=== PATIENT | male | born 1980 | race Caucasian/White ===

== ENCOUNTER 2022-09-25 06:22 | Emergency (ER) | payer MEDICAID, SELFPAY ==
[2022-09-25 06:23] VITALS: PULSE 109; RESP 24; TEMP 36.8; O2SAT 90; BMI 34.4
[2022-09-25 06:31] VITALS: BP 175/100
[2022-09-25] MEDS: Albuterol 2.5 MG/3 ML VIAL.NEB. INHALATION (06:49)
[2022-09-25] MEDS: Ipratropium/Albuterol Sulfate 3 ML AMPUL.NEB INHALATION (06:49)
[2022-09-25 06:50] VITALS: PULSE 92; RESP 22
[2022-09-25 06:51] VITALS: O2SAT 94
[2022-09-25] MEDS: MethylPREDNISolone 125 MG/2 ML Vial IV (07:01)
--- NOTE | 2022-09-25 07:15 | RAD_ITS ---
INDICATION: cough EXAMINATION/TECHNIQUE: X-RAY - XR Chest 2 Views COMPARISON: Chest x-ray from 03/08/2013 FINDINGS: LINES/DEVICES: None. LUNGS: No pulmonary edema or focal airspace consolidation. No sizable pleural effusion. No pneumothorax detected. MEDIASTINUM AND CARDIOVASCULAR STRUCTURES: Heart size within normal limits. Mediastinal contours unremarkable. BONES AND SOFT TISSUES: No acute findings. RAD/Chest PA and Lateral IMPRESSION: No radiographic evidence of acute cardiopulmonary disease. Electronically Signed: Pasquale Alexandra MD at 7:36 EST ,
--- NOTE | 2022-09-25 07:18 | EX.ED.DYSGE1 ---
HPI History of Present Illness Chief Complaint: Shortness of Breath Narrative Narrative: Patient is a 42-year-old male with past medical history of hypertension and smoking. He states he came in from chopping wood last night and felt mildly short of breath. He states his night progressed to shortness of breath worsened. He denies any known sick contacts and he denies any fevers or chills. He denies any chest pain associated with this. He states that as his shortness of breath seems to be worsening he was concerned about infectious process and therefore comes in for evaluation [facility] Home Medications albuterol sulfate 90 mcg/actuation aerosol inhaler (Ventolin HFA) 1 - 2 puff inhalation Q4H PRN PRN Wheezing #1 device 09/25/22 [Rx Last Taken Unknown] fluticasone furoate 100 mcg-vilanterol 25 mcg/dose inhalation powder (Breo Ellipta) 1 inh inhalation DAILY #60 ea 09/25/22 [Rx Last Taken Unknown] prednisone 20 mg tablet 40 mg PO DAILY 5 days #10 tabs 09/25/22 [Rx Last Taken Unknown] Allergy/AdvReac Type Severity Reaction Status Date / Time No Known Allergies Allergy Verified 10/20/15 19:49 Surgical History (Updated 09/25/22 @ 06:27 by Soco Mooney) H/O left knee surgery Social History Smoking Status: Current every day smoker tobacco type: cigarettes ROS ROS ED Constitutional Constitutional ED: Denies chills or fever(s) ENT ENT ED: Reports rhinorrhea; Denies sore throat Cardiovascular Cardiovascular: Denies chest pain, palpitations or racing heartbeat Respiratory/Chest Respiratory/Chest: Reports cough and dyspnea Gastrointestinal Gastrointestinal: Denies abdominal pain, diarrhea, nausea or vomiting Genitourinary Genitourinary ED: Denies dysuria Musculoskeletal Musculoskeletal: Denies myalgias Integumentary Denies rash Neurologic Neurologic: Denies headache(s) Hematologic/Lymphatic Hematologic/Lymphatic: Denies easy bleeding or easy bruising EXAM Physical Exam Const Vital Signs: 09/25/22 06:23 09/25/22 06:31 09/25/22 06:50 Temperature 98.3 F Temperature Source Oral Pulse Rate 109 H 92 Respiratory Rate 24 H 22 H Respiratory Effort Respiratory Depth Respiratory Pattern Blood Pressure 175/100 H Blood Pressure Mean 125 Pulse Ox 90 Oxygen Delivery Method Room Air 09/25/22 06:51 Temperature Temperature Source Pulse Rate Respiratory Rate Respiratory Effort Short of Breath Accessory Muscle Use Respiratory Depth Shallow Respiratory Pattern Tachypnea Blood Pressure Blood Pressure Mean Pulse Ox Oxygen Delivery Method Room Air Positive well nourished and well developed General Appearance ED: well developed HEENT Reports moist mucous membranes HEENT Narrative: Cobblestoning the posterior pharynx consistent with sinus drainage without airway edema or compromise Eyes PERRL and EOMs intact bilaterally Neck supple and no JVD Neck Narrative: Positive anterior cervical lymphadenopathy noted Resp Resp Narrative: Patient is tachypneic with diminished breath sounds throughout with diffuse inspiratory and expiratory wheezing Cardio regular rhythm Rate: tachycardic Extremity normal to inspection Extremity Narrative: No asymmetric edema no pitting edema negative Homans' sign bilaterally Neuro oriented x3 and CN's II-XII intact bilaterally Sensorium / Orientation: alert Psych mental status grossly normal Skin no rashes or lesions noted MDM MDM MDM Narrative Medical decision making narrative: Patient presented to the ER tachypneic and satting in the low 90s on room air. He had diminished breath sounds with wheeze consistent with COPD exacerbation. In order to check for possible lung pathology a chest x-ray was obtained and viral swabs were ordered as well. Influenza and COVID tests are negative and chest x-ray reveals no acute infiltrate pneumothorax or pleural effusion. Patient was given albuterol DuoNeb and steroids and on reevaluation had improvement of symptoms and his breath sounds and work of breathing improved as well. At this time as symptoms are most consistent with a COPD exacerbation and not cardiac or infectious I do not feel there is need for further work-up. Patient be given symptomatic medications and is otherwise safe for discharge as symptoms have improved with treatment and he is not requiring any type of supplemental oxygen. Radiography Diagnostic Testing: Clinical Impression(s) from Imaging Studies Chest X-Ray 09/25/22 07:15 IMPRESSION: No radiographic evidence of acute cardiopulmonary disease. Electronically Signed: Pasquale Alexandra MD at 7:36 EST , Chest x-ray as interpreted by emergency medicine physician reveals no acute infiltrate pneumothorax pleural effusion Discharge Plan Triage Chief Complaint: Shortness of Breath ED Provider: David Buckner Dx/Rx/DC Orders Clinical Impression: Acute exacerbation of chronic obstructive pulmonary disease, Hypertension, Tobacco abuse Instructions: COPD: Wheezing and Chest Tightness Prescriptions: New prednisone 20 mg tablet 40 mg PO DAILY 5 Days Qty: 10 0RF albuterol sulfate [Ventolin HFA] 90 mcg/actuation HFA aerosol inhaler 1 - 2 puff inhalation Q4H PRN PRN (Reason: Wheezing) Qty: 1 2RF fluticasone furoate-vilanterol [Breo Ellipta] 100-25 mcg/dose blister with device 1 inh inhalation DAILY Qty: 60 2RF Stand Alone Forms: ED Work / School Excuse Primary Care Provider: Care Physician,No Primary Referrals: Travon Rodríguez MD [Med Staff - Active Staff] - Care Physician,No Primary [Primary Care Provider] - Activity Restrictions/Additional Instructions: Please take the steroids for the next 5 days to control inflammation and use your rescue inhaler as needed. Please also take the maintenance inhaler daily to prevent further flares and return to the ER should you have any further concerns Disposition Disposition: Home, Self Care
[2022-09-25 07:59] VITALS: BP 160/99; PULSE 76; RESP 20; O2SAT 97
[2022-09-25] MEDS: Albuterol Sulfate 8 gm Inhaler (60 puffs) 2 PUFF INHALATION (07:59)
== END 2022-09-25 08:00 | disposition home or self-care (01) ==
PROVIDERS: Emergency Provider Emergency Medicine; Visit Provider Emergency Medicine
DX: J44.1 Chronic obstructive pulmonary disease with (acute) exacerbation (principal); R06.82 Tachypnea, not elsewhere classified; Z20.822 Contact with and (suspected) exposure to COVID-19; I10 Essential (primary) hypertension; F17.210 Nicotine dependence, cigarettes, uncomplicated
CPT/HCPCS: 71046; 87428; 94640; 99283; A4216

== ENCOUNTER 2023-01-25 15:46 | Emergency (ER) | payer MEDICAID, SELFPAY ==
[2023-01-25 15:47] VITALS: BP 173/89; PULSE 112; RESP 18; TEMP 36.4; O2SAT 99; BMI 35.6
--- NOTE | 2023-01-25 15:57 | EDS_ITS ---
HPI <JAZMYN Perez - Last Filed: 01/25/23 16:05> History of Present Illness Chief Complaint: Allergic Reaction Narrative Narrative: 42-year-old male was cleaning someone's dog kennel with lots of alexus in it 2 days ago. That night he noticed red lesions on both arms and the right side of his chest where the arm touches his rib cage. He also had a few spots around the right eye that became significantly more swollen today. He took some allergy medicine and the swelling went down a little bit. He has no difficulty swallowing or breathing. PFSH <JAZMYN Perez - Last Filed: 01/25/23 16:05> PFS Home Medications prednisone 10 mg tablet 10 mg PO DAILY #34 TABLETS 01/25/23 [Rx Last Taken Unknown] Allergy/AdvReac Type Severity Reaction Status Date / Time No Known Allergies Allergy Verified 01/25/23 15:49 Surgical History H/O left knee surgery Social History Smoking Status: Current every day smoker tobacco type: cigarettes ROS <JAZMYN Perez - Last Filed: 01/25/23 16:05> ROS ED ROS Narrative Constitutional: Negative for fever, chills, malaise. CVS: Negative for chest pain. Respiratory: Negative for shortness of breath. Skin: Positive for rash. EXAM <JAZMYN Perez - Last Filed: 01/25/23 16:05> Physical Exam Narrative Exam Narrative: CONST: Patient sitting in no acute distress. EYES: Normal inspection. PERRLA, EOMI. ENT: Normal inspection, moist mucous membranes. No mucosal lesions. NECK: Normal inspection. RESP: No respiratory distress, CTAB. CVS: Regular rate and rhythm, no murmur, no gallop. SKIN: Red streaky linear rash with excoriations on right inner elbow and forearm, several scattered on left arm. Similarly lower lesions on right rib cage where his arm would rest. He also has redness and swelling in the right periorbital region. EXTREMITIES: Normal appearance, no pedal edema. NEURO: Oriented x4. PSYCH: Normal affect. Const Vital Signs: 01/25/23 15:47 01/25/23 16:04 01/25/23 16:10 Temperature 97.6 F L Temperature Source Temporal Pulse Rate 112 H 101 H 101 H Respiratory Rate 18 Blood Pressure 173/89 H Blood Pressure Mean 117 Pulse Ox 99 97 97 Oxygen Delivery Method Room Air Room Air <Dr. Faheem Appiah DO - Last Filed: 01/25/23 16:36> Physical Exam Const Vital Signs: 01/25/23 15:47 01/25/23 16:04 01/25/23 16:10 Temperature 97.6 F L Temperature Source Temporal Pulse Rate 112 H 101 H 101 H Respiratory Rate 18 Blood Pressure 173/89 H Blood Pressure Mean 117 Pulse Ox 99 97 97 Oxygen Delivery Method Room Air Room Air MDM <JAZMYN Perez - Last Filed: 01/25/23 16:05> [facility] Narrative Medical decision making narrative: Patient has acute rash after cleaning out alexus and plant material. On exam is consistent with plant contact dermatitis on both upper extremities, right rib cage, and around his right eye. There is no ocular or mucosal involvement. Patient will be given first dose of prednisone here and 2-week taper for home. I instructed him to use Benadryl every 6 hours as needed. He was discharged in stable condition. [place]: Plant contact dermatitis, does not appear like cellulitis <Dr. Faheem Appiah, - Last Filed: 01/25/23 16:36> [facility] Narrative Medical decision making narrative: Patient has acute rash after cleaning out alexus and plant material. On exam is consistent with plant contact dermatitis on both upper extremities, right rib cage, and around his right eye. There is no ocular or mucosal involvement. Patient will be given first dose of prednisone here and 2-week taper for home. I instructed him to use Benadryl every 6 hours as needed. He was discharged in stable condition. Differential: Plant contact dermatitis, does not appear like cellulitis Attending note: Patient seen and evaluated with senior software test engineer. I perform my own [id number] evaluation. I agree with the plan of work-up. Increasing itching right arm around the eyes progress noted in his scrotum today for his concern. Poison alexus exposure 2 days ago removing the tree for his neighbor. Had this before however this more significant. No lip or tongue swelling. No change in medications. Exam notes excoriations right arm with papules, there was swelling of the upper lids with papules, no lip or tongue swelling. Scrotal exam is swelling along with penile prepuce swelling, no induration. Patient with exposure to poison alexus progression of symptoms, history of a urinate. He started 2 weeks course of steroids, he will use Benadryl. He will monitor for urine retention and discomfort. Return precautions. All questions were answered. Discharge Plan Triage Chief Complaint: Allergic Reaction ED Midlevel Provider: Leslie Morillo ED Provider: Faheem Appiah Dx/Rx/DC Orders Clinical Impression: Allergic contact dermatitis due to plant Instructions: Poison Alexus [facility] Prescriptions: New prednisone 10 mg tablet 10 mg PO DAILY Qty: 34 0RF Rx Instructions: START ON January 26. 4 po qd x 4 days, 3 po qd x 3 days, 2 po qd x 3 days, 1 po qd x 3 days Primary Care Provider: Care Physician,No Primary Referrals: Care Physician,No Primary [Primary Care Provider] - Activity Restrictions/Additional Instructions: I sent steroids to your pharmacy which she will take for 2 weeks. You can take Benadryl every 6 hours as needed. Disposition Disposition: Home, Self Care Discharge Date/Time: 01/25/23 16:13
--- NOTE | 2023-01-25 16:00 | ED.RN ---
PT DENIES HAVING TROUBLE BREATHING AND SHORTNESS OF BREATH OF 155.
[2023-01-25 16:04] VITALS: PULSE 101; O2SAT 97
[2023-01-25] MEDS: predniSONE 20 MG Tablet 40 MG PO (16:07)
[2023-01-25 16:10] VITALS: PULSE 101; O2SAT 97
== END 2023-01-25 16:13 | disposition home or self-care (01) ==
LOC: ED 16:12
PROVIDERS: Emergency Provider Emergency Medicine; Visit Provider Emergency Medicine
DX: L23.7 Allergic contact dermatitis due to plants, except food (principal); F17.210 Nicotine dependence, cigarettes, uncomplicated
CPT/HCPCS: 99283

== ENCOUNTER 2023-09-04 21:11 | Emergency (ER) | payer MEDICAID, SELFPAY ==
[2023-09-04 21:12] VITALS: BP 164/114; PULSE 110; RESP 20; TEMP 37.1; O2SAT 96; BMI 35.6
--- NOTE | 2023-09-04 22:14 | ED.VIS.DYS ---
HPI History of Present Illness Chief Complaint: Asthma Informant: patient and EMS Narrative Narrative: Patient states he has asthma, he was outside splitting wood and exerting himself fairly heavily, and his asthma flared up and started getting worse to the point where he was so tight he felt like he could not breathe. EMS was called. They gave him IV Solu-Medrol, duo nebulizer treatment, and another albuterol. He is feeling much better now. His albuterol inhaler had run out. He states the weather is cold and oftentimes cold air makes his asthma worse, making him wheeze with very little exertion. He had been put on maintenance Advair he thinks 100 mcg in the past, but he has been out of that for a long time he does not have a doctor right now. [facility] Medical History Asthma Hypertension Home Medications NK 09/04/23 [History Last Taken Unknown] albuterol sulfate 90 mcg/actuation aerosol inhaler (Ventolin HFA) 1 - 2 puff inhalation Q4H PRN PRN Wheezing ##1 09/04/23 [Rx Last Taken Unknown] fluticasone 100 mcg-salmeterol 50 mcg/dose blistr powdr for inhalation 1 inh inhalation BID #60 ea 09/04/23 [Rx Last Taken Unknown] prednisone 20 mg tablet 40 mg (2 x 20 mg) PO DAILY #8 TABLETS 09/04/23 [Rx Last Taken Unknown] Allergy/AdvReac Type Severity Reaction Status Date / Time No Known Allergies Allergy Verified 09/04/23 21:12 Surgical History H/O left knee surgery Social History Smoking Status: Current every day smoker tobacco type: cigarettes ROS ROS ED Constitutional Constitutional ED: Denies chills or fever(s) Eyes Eyes: Denies change in vision or diplopia ENT ENT ED: Denies rhinorrhea or sore throat Cardiovascular Cardiovascular: Denies chest pain or palpitations Respiratory/Chest Respiratory/Chest: Reports chest tightness, dyspnea and wheezing; Denies cough Gastrointestinal Gastrointestinal: Denies abdominal pain, diarrhea, nausea or vomiting Genitourinary Genitourinary ED: Denies dysuria or hematuria Musculoskeletal Musculoskeletal: Denies back pain or neck pain Integumentary Denies abscess or rash Neurologic Neurologic: Denies headache(s), paresthesias or weakness Psychiatric Psychiatric: Denies anxiety or suicidal thoughts EXAM Physical Exam Const Vital Signs: 09/04/23 21:12 09/04/23 21:16 Temperature 98.7 F Temperature Source Oral Pulse Rate 110 H Respiratory Rate 20 H Respiratory Effort Short of Breath Respiratory Depth Normal Respiratory Pattern Normal Blood Pressure 164/114 H Blood Pressure Mean 130 Pulse Ox 96 Oxygen Delivery Method Room Air Room Air Positive well nourished and well developed General Appearance ED: well developed and NAD HEENT Reports moist mucous membranes normocephalic and atraumatic Eyes PERRL and EOMs intact bilaterally Neck full ROM and supple Resp normal respiratory effort Resp Narrative: Slight end expiratory wheezes diffusely. Speaking in full sentences. No respiratory distress. Cardio regular rate, regular rhythm and no murmurs GI non-tender and non-distended Auscultation: normoactive bowel sounds Palpation: soft Back/Spine no CVA tenderness General Back: other FROM Extremity normal to inspection General Extremety ED: Negative for edema, pulses abnormal or tenderness General Extremity: Negative for edema or pulses abnormal Neuro oriented x3, CN's II-XII intact bilaterally and no sensory deficits noted Sensorium / Orientation: awake and alert Motor Exam: strength 5/5 throughout Skin no rashes or lesions noted and no wounds MDM MDM MDM Narrative Medical decision making narrative: Patient states he is doing much better now, his breathing well and speaking in full sentences, he is not hypoxic. I do not think he needs any other emergent testing here other than his vital signs. Will prescribe him the rest of a 5-day burst of steroids, and I think it would be reasonable to put him on his maintenance Advair, he thinks he is on the low-dose, as well as a new rescue inhaler he is comfortable with that plan. Referred to the next doctor on the unassigned list. Discharge Plan Triage Chief Complaint: Asthma ED Provider: Eitan Craig Dx/Rx/DC Orders Clinical Impression: Acute asthma exacerbation Instructions: Asthma Prescriptions: New prednisone 20 mg tablet 40 mg PO DAILY Qty: 8 0RF albuterol sulfate [Ventolin HFA] 90 mcg/actuation HFA aerosol inhaler 1 - 2 puff inhalation Q4H PRN PRN (Reason: Wheezing) Qty: 1 0RF fluticasone propion-salmeterol 100-50 mcg/dose blister with device 1 inh inhalation BID Qty: 60 0RF No Action NK Primary Care Provider: Care Physician,No Primary Referrals: Travon Rodríguez MD [Med Staff - Active Staff] - Disposition Disposition: Home, Self Care
[2023-09-04 22:28] VITALS: RESP 16; O2SAT 98
== END 2023-09-04 22:46 | disposition home or self-care (01) ==
LOC: ED 22:22
PROVIDERS: Emergency Provider Emergency Medicine; Visit Provider Emergency Medicine
DX: J45.901 Unspecified asthma with (acute) exacerbation (principal); F17.210 Nicotine dependence, cigarettes, uncomplicated
CPT/HCPCS: 99284

== ENCOUNTER 2024-08-11 12:59 | Emergency (ER) | payer MEDICAID, SELFPAY ==
[2024-08-11 13:00] VITALS: BP 177/116; PULSE 85; RESP 16; TEMP 36.4; O2SAT 95; BMI 34.8
[2024-08-11] MEDS: LORazepam 1 MG Tablet PO (14:11)
[2024-08-11 14:27] LABS: Absolute Lymphocyte Count 2.11 X10^3/uL (0.83-4.51); Absolute Neutrophil Count 5.7 X10^3/uL (2.0-7.7); Basophil# 0.06 X10^3/uL; Basophil% 0.7 % (0-1); Eosinophils% 4.5 % (0-5); Hematocrit 45.9 % (40-54); Hemoglobin 15.6 g/dL (13.0-16.5); Lymphocyte # 2.11 X10^3/ul (0.83-4.51); Lymphocyte % 23.8 % (19-41); Mean Corpuscular Volume 85.3 fL (80-94); Mean Platelet Vol. 9.4 fl (6.2-12.0); Monocyte# 0.55 X10^3/uL; Monocyte% 6.2 % (0-10); NRBC Flagged by Analyzer 0 % (0-5); Neutrophil # 5.72 X10^3/uL (2.7-7.7); Neutrophil % 64.5 % (47-70); Platelet Count 358 K/mm3 (150-450); RBC Distribution Width SD 39.8 fl (35.1-43.9); Red Blood Count 5.38 M/mm3 (4.6-6.2); White Blood Count 8.9 K/mm3 (4.4-11.0)
--- NOTE | 2024-08-11 14:31 | ED.RN ---
no sitter at this time per chargemaster specialist and Dr. Gloria. Belongings bagged and secured
[2024-08-11 14:34] LABS: Alcohol, Blood (Medical)-Serum < 3.0 mg/dL
[2024-08-11 14:35] LABS: Anion Gap 6 (5-15); BUN 15 mg/dL (7-18); BUN/Creat Ratio 16.6 RATIO (10-20); Calcium,Total 9.1 mg/dL (8.5-10.1); Chloride 108 mmol/L (98-107); EST Glomerular Filtration Rate 96 mL/min (>60); Est Glom Filt Rate - Afr Amer 117 mL/min (>60); Estimated Creatinine Clearance 128.85 ml/min; Glucose 104 mg/dL (74-106); Potassium 3.5 mmol/L (3.5-5.1); Sodium Level 138 mmol/L (136-145)
--- NOTE | 2024-08-11 15:24 | EDS_ITS ---
HPI HPI - Psych History of Present Illness Chief Complaint: Mental Health Detail of Chief Complaint: Noncompliance with medication. Patient requesting hospitalization for the Informant: patient Onset/Context/Timing Onset: Month(s) (1.0) Context: Gradual Onset Timing: Continuous Current Severity: Severe Maximum Severity: Severe Worsened by: Situational factors and Alcohol intoxication Relieved by: Nothing Associated Symptoms Associated Symptoms - Psych: Positive for Change in Eating, Change in sleeping, Decreased Interest, Suicidal Thoughts, Easily distracted, Increased activity, Agitated and Angry; Negative for Decreased Concentration, Hopelessness, Grandiosity, Flight of Ideas, Threatening, Confusion, Paranoia, Visual Hallucinations or Auditory Hallucinations Specific plan (suicidal thought): I always have a plan Narrative Narrative: Patient is a 44-year-old gentleman with history of posttraumatic stress disorder, bipolar affective disorder and anxiety who stopped his medication 2 to 3 years ago. He has had racing thoughts for the past month. Patient states he always has a plan to harm himself. Has had thoughts of harming self for years. He states he needs to do something about these thoughts that are racing in his head. He denies visual or auditory hallucinations. He does have trouble with sleep, eating. There is been weight loss. Patient was agitated when I asked questions. He states I already answered these questions and I am not going through this again. Patient was informed I am the physician charge of his care and he needs to talk to me because I am the one that will make the disposition. Once he was made aware of this he openly and willingly spoke with me informed me why he is here. Prior similar symptoms: Yes Recent Illness/Hospitalization: No PFSH [facility] Medical History (Updated 08/11/24 @ 16:[address] Maikol Gloria MD) PTSD (post-traumatic stress disorder) Bipolar affective Hypertension Asthma Home Medications ?Medication ?Instructions ?Recorded ?Last Taken ?Type NK 09/04/23 Unknown History albuterol sulfate 90 mcg/actuation 1 - 2 puff inhalation Q4H PRN PRN 09/04/23 Unknown Rx aerosol inhaler (Ventolin HFA) Wheezing ##1 fluticasone 100 mcg-salmeterol 50 1 inh inhalation BID #60 ea 09/04/23 Unknown Rx mcg/dose blistr powdr for inhalation prednisone 20 mg tablet 40 mg (2 x 20 mg) PO DAILY #8 09/04/23 Unknown Rx TABLETS Allergy/AdvReac Type Severity Reaction Status Date / Time No Known Allergies Allergy Verified 08/11/24 13:04 Surgical History H/O left knee surgery Social History Smoking Status: Current every day smoker tobacco type: cigarettes ROS ROS ED Constitutional Constitutional ED: Denies chills, fever(s) or subjective Eyes Eyes: Denies blurry vision or change in vision ENT ENT ED: Denies ear pain or rhinorrhea Cardiovascular Cardiovascular: Denies chest pain, orthopnea or palpitations Respiratory/Chest Respiratory/Chest: Denies cough, dyspnea, dyspnea on exertion or orthopnea Gastrointestinal Gastrointestinal: Denies abdominal pain, nausea or vomiting Genitourinary Genitourinary ED: Denies dysuria, hematuria or urinary frequency Musculoskeletal Musculoskeletal: Denies arthralgias or myalgias Integumentary Denies rash Neurologic Neurologic: Denies headache(s), paresthesias or weakness Psychiatric Psychiatric: Reports anxiety and suicidal thoughts; Denies suicidal ideation Hematologic/Lymphatic Hematologic/Lymphatic: Denies easy bleeding or easy bruising EXAM Physical Exam Const Vital Signs: 08/11/24 13:00 Temperature 97.6 F L Temperature Source Temporal Pulse Rate 85 Respiratory Rate 16 Blood Pressure 177/116 H Blood Pressure Mean 136 Pulse Ox 95 Oxygen Delivery Method Room Air Positive well nourished and well developed General Appearance ED: well developed, irritable and NAD; Negative for pallor HEENT Reports moist mucous membranes normocephalic and atraumatic Eyes PERRL and EOMs intact bilaterally General Eye ED: Negative for pale conjunctiva or scleral icterus Neck no lymphadenopathy, supple and no JVD Resp normal respiratory effort and clear to auscultation bilaterally Cardio S1 normal heart sound, S2 normal heart sound and no murmurs Rate: regular rate Rhythm: regular rhythm GI non-tender, non-distended and no masses Palpation: soft Extremity normal to inspection General Extremety ED: Negative for edema or tenderness General Extremity: Negative for edema Neuro oriented x3, CN's II-XII intact bilaterally and no sensory deficits noted [place] Coma Scale: document GCS findings Spontaneous Obeys Commands Oriented 15 Sensorium / Orientation: alert Psych denies hallucinations, denies homicidal ideation and denies suicidal ideation Appearance: grossly normal Attitude: agitated Activity / Motor Behavior: psychomotor agitation Speech: minimal and other Mood & Affect: irritable, labile affect, hostile affect and constricted affect Thought Process: racing thoughts Thought Content: No suicidality, No homicidality, No phobia(s), No hallucination(s), No derealization, No compulsion(s) and No obsession(s) Attention / Concentration: attention grossly intact and concentration grossly intact Insight: fair Judgement: fair Skin General Skin Exam: Negative for jaundice or pallor Lesions: no lesions Rashes: no rashes MDM MDM MDM Narrative Medical decision making narrative: Patient was seen by the non licensed nuclear equipment operator from crisis. She did pink slip patient. Makenna did speak with me. Workup was undertaken to rule out infectious or metabolic causes. Suspect this is due to noncompliance with medication. Lab Data Attestation: I reviewed the patient's lab results. Lab results narrative: CBC normal. Basic metabolic panel is unremarkable. Chloride slightly elevated. Alcohol is nondetected. Labs: Laboratory Results - last 24 hr 08/11/24 08/11/24 14:00 15:20 WBC 8.9 RBC 5.38 Hgb 15.6 Hct 45.9 MCV 85.3 MCH 29.0 MCHC 34.0 RDW Std Deviation 39.8 RDW Coeff of Jaz 13.0 Plt Count 358 MPV 9.4 Immature Gran % (Auto) 0.300 Neut % (Auto) 64.5 Lymph % (Auto) 23.8 [place] % (Auto) 6.2 Eos % (Auto) 4.5 Baso % (Auto) 0.7 Absolute Neuts (auto) 5.7 Absolute Lymphs (auto) 2.11 Nucleated RBC % 0 Sodium 138 Potassium 3.5 Chloride 108 H Carbon Dioxide 24.0 Anion Gap 6 BUN 15 Creatinine 0.90 Estim Creat Clear Calc 128.85 Est GFR (MDRD) Af Amer 117 Est GFR (MDRD) Non-Af 96 BUN/Creatinine Ratio 16.6 Glucose 104 Calcium 9.1 Urine Opiates Screen NEGATIVE Urine Methadone Screen NEGATIVE Ur Barbiturates Screen NEGATIVE Ur Phencyclidine Scrn NEGATIVE Ur Amphetamines Screen NEGATIVE MDMA (Ecstasy) Screen NEGATIVE U Benzodiazepines Scrn NEGATIVE Urine Cocaine Screen NEGATIVE U Cannabinoids Screen POSITIVE H Ur Drug Screen Comment Ethyl Alcohol < 3.0 Treatment and Re-Evaluation Narrative: I was informed by nursing staff that patient requesting to leave. Nurse was informed that patient is pink slipped. He is not permitted to leave. The evening physician Dr. Dayday Wiley was made aware the patient. He will need to get involved only if the patient becomes uncooperative and requires chemical sedation. Discharge Plan Triage Chief Complaint: Mental Health ED Provider: Maikol Gloria Dx/Rx/DC Orders Clinical Impression: Hypomania, PTSD (post-traumatic stress disorder), Bipolar affective, Abnormal weight loss Prescriptions: No Action NK prednisone 20 mg tablet 40 mg PO DAILY Qty: 8 0RF albuterol sulfate [Ventolin HFA] 90 mcg/actuation HFA aerosol inhaler 1 - 2 puff inhalation Q4H PRN PRN (Reason: Wheezing) Qty: 1 0RF fluticasone propion-salmeterol 100-50 mcg/dose blister with device 1 inh inhalation BID Qty: 60 0RF Primary Care Provider: Care Physician,No Primary Referrals: Care Physician,No Primary [Primary Care Provider] - Print Language: Kyrgyz Disposition Disposition: Psychiatric Hospital or Unit
[2024-08-11 15:39] LABS: Amphetamine Urine VISTA NEGATIVE (<1000 ng/mL); Barbiturate Urine VISTA NEGATIVE (< 200 ng/mL); Benzodiazepine Urine VISTA NEGATIVE (< 200 ng/mL); Cocaine Urine VISTA NEGATIVE (< 300 ng/mL); Ecstacy Urine VISTA NEGATIVE (< 500 ng/mL); Methadone Urine VISTA NEGATIVE (< 300 ng/mL); PCP Urine VISTA NEGATIVE (< 25 ng/mL); THC Urine VISTA POSITIVE (< 50 ng/mL); Vista UDS pH Range 5
[2024-08-11] MEDS: Ziprasidone IM 20 MG/ML VIAL IM (17:07)
--- NOTE | 2024-08-11 18:45 | ED.RN ---
Addendum: pt was yelling and wanting to leave. It was explained to pt that he was pink slipped by crisis. Pt stated that he came voluntarily and wasn't suicidal, so there was no reason for him to be pink slipped. Pt called crisis and yelling at Makenna. Makenna asked to speak to someone from here and I spoke with her. She stated that due to having to deal with the pt since last night and the fact that the pt wouldn't comply with a safety plan, that she was going to send the pt to a facility. Pt has been off of his medications for 5 years. Pt agreed to be medicated to relax and wanted curtain closed due to being paranoid that people were watching him. Pt has been accepted at [facility] and ETA for EMS is 11 or 12. Pt is now sleeping from the medication.
--- NOTE | 2024-08-11 19:32 | ED.RN ---
I CALLED PHYSICIANS TO ASK FOR THE UPDATE ON OUTSOURCED RIDE THEY NEVER CALLED US BACK WITH, CESARIO ANSWERED SAYING THAT THERE ARE NO NOTES ABOUT ANY OUTSOURCING AND THAT MULTIPLE HOURS EARLIER WHEN SHE SPOKE TO [facility] THAT THEY ARE SUPER BUSY AND NOT ABLE TO TAKE A PREVIOUS PATIENT OF THEIRS. I REQUESTED THAT SHE CALL [facility] BACK AND GET A REASON WHY FOR NOTES SAKE FOR BOTH ENDS OF PATIENT CARE WHY CAN'T TRANSFER. CESARIO TOLD ME THAT SHE WOULD PASS IT ON TO HER [facility], BUT THE PHONES ARE RINGING BACK TO BACK AND IT IS DIFFICULT TO OUTSOURCE PATIENT.
--- NOTE | 2024-08-11 19:59 | ED.RN ---
ATTEMPTED TO CALL REPORT TO [facility]. PER RECORDED VOICE MESSAGE THERE IS A TECHNICAL PROBLEM AND THE CALL WAS NOT ABLE TO BE COMPLETED.
--- NOTE | 2024-08-11 21:50 | ED.RN ---
Attempted to call report x4 with multiple different phone numbers. No answer at this time.
--- NOTE | 2024-08-11 22:08 | ED.RN ---
Report given to Cheryle LONG @ [facility]
== END 2024-08-11 22:11 ==
PROVIDERS: Emergency Provider Emergency Medicine; Referring Provider Emergency Medicine; Visit Provider Emergency Medicine
DX: F31.10 Bipolar disorder, current episode manic without psychotic features, unspecified (principal); F43.10 Post-traumatic stress disorder, unspecified; R63.4 Abnormal weight loss; F17.210 Nicotine dependence, cigarettes, uncomplicated; Z68.34 Body mass index [BMI] 34.0-34.9, adult; Z91.148 Patient's other noncompliance with medication regimen for other reason
CPT/HCPCS: 80048; 80307; 82077; 85025; 96372; 99283; J3486